=== PATIENT | male | born 1960 | race Caucasian/White ===

== ENCOUNTER 2016-10-27 15:05 | Emergency (ER) | payer BC, OTHER ==
--- NOTE | 2016-10-27 15:13 | PDOC ---
History of Present Illness - General History Source: Patient Exam Limitations: No Limitations - History of Present Illness Initial Comments: 10/27/16 15:33 The patient is a 56 year old male with no known past medical history who presents to the ED with complaints of abdominal pain that began approximately one hour ago. The patient locates the pain to his periumbilical area and describes it as a gassy, upset stomach feeling that is non-radiating. He rates the pain 6/10 and states that it is worse with sitting up and deep inspiration. It is accompanied with nausea but no vomiting. He denies any fevers or chills. The patient states he took ibuprofen and pepto bismol before arrival. As per , the patient experiences heartburn and has been taking lots of antacids. The patient states that he has been experiencing similar episodes since July but only after a large meal, however today the patient only ate a bagel this morning. Additionally, the patient states he hasnt seen his PCP in a few years. PMH: denies PSH: Polydactyly surgery as an infant Meds: Glucosamine chondroitin ALL: cats Social: employed, denies alcohol/drug/tobacco use PCP: Dr. Muniz <Pebbles Alaniz - Last Filed: 10/27/16 17:35> - General History Source: Patient Exam Limitations: No Limitations - History of Present Illness Travel History: No <[place] - Last Filed: 10/28/16 07:44> - General Chief Complaint: Pain Stated Complaint: ABDOMINAL PAIN & DISTENTION Time Seen by Provider: 10/27/16 15:09 Past History <Pebbles Alaniz - Last Filed: 10/27/16 17:35> - Psycho/Social/Smoking Cessation Hx Anxiety: No Suicidal Ideation: No Smoking History: Never smoked Hx Alcohol Use: No Substance Use Type: None <[place] - Last Filed: 10/28/16 07:44> - Past Medical History Allergies/Adverse Reactions: Allergies Allergy/AdvReac Type Severity Reaction Status Date / Time No Known Allergies Allergy Verified 10/27/16 15:07 Home Medications: Ambulatory Orders Bismuth Subsalicylate [Pepto-Bismol -] 2 tab PO ONCE 10/27/16 Glucosa Chandler 2Kcl/Chondroitin Chandler [Glucosamine & Chondroitin Cap] 1 each PO DAILY 10/27/16 Ibuprofen [Advil -] 200 mg PO ONCE PRN 10/27/16 Review of Systems - Review of Systems Able to Perform ROS?: Yes Comments:: 10/27/16 15:34 GENERAL/CONSTITUTIONAL: No: fever, chills, weakness, loss of appetite. HEAD, EYES, EARS, NOSE AND THROAT: No: change in vision, ear pain, discharge, sore throat, throat swelling. CARDIOVASCULAR: No: chest pain, lightheadedness, palpitations, syncope RESPIRATORY: No: cough, shortness of breath, wheezing, hemoptysis, stridor. GASTROINTESTINAL: Yes: abdominal pain, nausea No: vomiting, diarrhea, rectal bleeding, constipation. GENITOURINARY: No: dysuria, hematuria, frequency, urgency, flank pain. MUSCULOSKELETAL: No: back pain, neck pain, joint pain, muscle swelling or pain SKIN AND BREASTS: No: lesions, pallor, rash or easy bruising. NEUROLOGIC: No: headache, vertigo, paresthesias, weakness ENDOCRINE: No: unexplained weight gain or loss HEMATOLOGIC/LYMPHATIC: No: anemia, easy bleeding, swelling nodes All Other Systems: Reviewed and Negative <Pebbles Alaniz - Last Filed: 10/27/16 17:35> *Physical Exam - Vital Signs Last Vital Signs Temp Pulse Resp BP Pulse Ox 97.6 F 78 16 159/93 99 10/27/16 15:06 10/27/16 15:06 10/27/16 15:06 10/27/16 15:06 10/27/16 15:06 - Physical Exam Comments: 10/27/16 15:40 GENERAL: Awake, alert, and fully oriented, in no acute distress HEAD: No signs of trauma EYES: PERRLA, EOMI, sclera anicteric, conjunctiva clear ENT: Auricles normal inspection, hearing grossly normal, nares patent, oropharynx clear without exudates. Moist mucosa NECK: Normal ROM, supple, no lymphadenopathy, JVD, or masses LUNGS: Breath sounds equal, clear to auscultation bilaterally. No wheezes, and no crackles HEART: Regular rate and rhythm, normal S1 and S2, no murmurs, rubs or gallops ABDOMEN: Mild upper abdominal tenderness, hypoactive bowel sounds. Soft. No guarding, no rebound. No masses EXTREMITIES: Normal range of motion, no edema. No clubbing or cyanosis. No cords, erythema, or tenderness NEUROLOGICAL: Cranial nerves II through XII grossly intact. Normal speech, normal gait SKIN: Warm, Dry, normal turgor, no rashes or lesions noted. <Pebbles Alaniz - Last Filed: 10/27/16 17:35> Heart Score/ECG Review #1 ECG reviewed & interpreted by me at: 16:24 10/27/16 16:24 Twelve-lead EKG was performed and reviewed by me. There is normal sinus rhythm with a normal rate of 82bpm. The axis is normal. The intervals are normal. There are no ST or T wave abnormalities. Impression: Normal twelve-lead EKG <[place] - Last Filed: 10/28/16 07:44> ED Treatment Course - LABORATORY CBC & Chemistry Diagram: 10/27/16 15:45 10/27/16 15:45 <Pebbles Alaniz - Last Filed: 10/27/16 17:35> - LABORATORY CBC & Chemistry Diagram: 10/27/16 15:45 10/27/16 15:45 <[place] - Last Filed: 10/28/16 07:44> Medical Decision Making - Medical Decision Making 10/27/16 17:25 Phone call placed to Dr. Muniz. Phone call returned at 17:[address] Sosa and case was discussed. <Pebbles Alaniz - Last Filed: 10/27/16 17:35> - Medical Decision Making 10/27/16 15:12 A portion of this note was documented by scribe services under my direction. I have reviewed the details of the note, within reason, and agree with the documentation with the following case summary and management plan written by me. Nursing documentation reviewed and incorporated into medical decision making 56 yo M Does not have a PMD, unsure if he has any medical problems He presents to the ER with a complaint of severe upper abdominal pain Typically this happens after eating a large meal Today, this occurred without him eatiung a large meal No fevers No chills No vomiting No diarrhea No chest pain 10/27/16 16:43 Laboratory Tests 10/27/16 15:45 Sodium 134 L Potassium 3.4 L Chloride 105 Carbon Dioxide 25 BUN 18 Creatinine 1.1 AST 44 H ALT 44 H 10/27/16 17:00 Laboratory Tests 10/27/16 15:45 WBC 10.5 H Hgb 15.8 Hct 46.1 Plt Count 148 10/27/16 17:34 Laboratory Tests 10/27/16 15:45 Creatine Kinase 86 Troponin I < 0.[address] demonstrates 2 large stones No evidence of cholecystitis Case reviewed with Dr Sosa Will discharge to home Follow up with PMD Return to the ER with any other concerns or complaints 10/28/16 07:44 <[place] - Last Filed: 10/28/16 07:44> *DC/Admit/Observation/Transfer - Attestations Scribe Attestion: 10/27/16 15:35 Documentation prepared by Pebbles Alaniz, acting as medical staff assistant for [place] MD. <Pebbles Alaniz - Last Filed: 10/27/16 17:35> - Discharge Dispostion Admit: No <[place] - Last Filed: 10/28/16 07:44> Diagnosis at time of Disposition: Gall stone Qualifiers: Cholecystitis presence: without cholecystitis Biliary obstruction: without biliary obstruction Qualified Code(s): K80.20 - Calculus of gallbladder without cholecystitis without obstruction Abdominal pain Qualifiers: Abdominal location: upper abdomen, unspecified Qualified Code(s): R10.10 - Upper abdominal pain, unspecified - Discharge Dispostion Disposition: HOME Condition at time of disposition: Good - Referrals Referrals: Thaddeus Muniz MD [Primary Care Provider] - - Patient Instructions Printed Discharge Instructions: DI for Gallstones, DI for Gastritis Additional Instructions: Elder Thank you for coming in to the ER today Please follow up with your primary care physician and with a snack steward within 1 week Return to the ER for any other concerns or complaints Please review your studies
[2016-10-27] MEDS ORDERED: ONDANSETRON 4 MG/2 ML VIAL IVPUSH ONE (15:19)
[2016-10-27 15:20] VITALS: BP 159/93; PULSE 78; TEMP 97.6; BMI 32.3
[2016-10-27] MEDS ORDERED: PANTOPRAZOLE SODIUM 40 MG in SODIUM CHLORIDE 100 ML IVPB ONE (15:30)
[2016-10-27] MEDS ORDERED: ONDANSETRON 4 MG/2 ML VIAL ONE (16:10)
[2016-10-27] MEDS ORDERED: PANTOPRAZOLE SODIUM 40 MG VIAL ONE (16:10)
[2016-10-27 16:25] LABS: CPK(DFH) 86 IU/L (38-174)
[2016-10-27 16:27] LABS: ALBUMIN 3.8 g/dl (3.5-5.0); ALK PHOS 85 U/L (32-92); AMYLASE 73 U/L (25-125); ANION GAP 4 (8-16); BILIRUBIN,TOTAL 0.8 mg/dl (0.2-1.0); CALCIUM 8.7 mg/dl (8.4-10.2); CO2 25 mmol/L (22-28); CREATININE 1.1 mg/dl (0.6-1.3); GLUCOSE,RANDOM 143 mg/dl (74-106); SGOT/AST 44 U/L (10-42); SGPT/ALT 44 U/L (10-40); TOT PROT 6.3 g/dl (6.4-8.3)
[2016-10-27 16:48] LABS: BASOPHIL 0.1 % (0-2.0); EOSINOPHIL 1.6 % (0-4.5); MCH 29.4 pg (25.7-33.7); MCHC 34.3 g/dl (32.0-35.9); MEAN CELL VOLUME 85.8 fl (80-96); MEAN PLT VOLUME 8.6 fl (7.5-11.1); NEUTROPHILS 80.6 % (42.8-82.8); PLATELET COUNT 148 K/MM3 (134-434); WHITE BLOOD COUNT 10.5 K/mm3 (4.0-10.0)
[2016-10-27 17:10] LABS: TROPONIN I (DFP) < 0.03 ng/ml (0.03-0.50)
[2016-10-27 17:37] LABS: PH,URINE 5.5 (4.5-8); URINE APPEARANCE Clear; URINE BILIRUBIN 1+ (NEGATIVE); URINE BLOOD Negative (NEGATIVE); URINE GLUCOSE (UA) Negative (NEGATIVE); URINE KETONE Trace (NEGATIVE); URINE LEUK ESTERASE Negative (NEGATIVE); URINE NITRITE Negative (NEGATIVE); URINE PROTEIN Negative (NEGATIVE); URINE UROBILINOGEN 0.2 E.U/dl (0.2-1.0)
[2016-10-27 17:38] LABS: URINE COLOR YELLOW
--- NOTE | 2016-10-28 12:50 | EKG ---
Test Reason : Blood Pressure : / mmHG Vent. Rate : 082 BPM Atrial Rate : 082 BPM P-R Int : 134 ms QRS Dur : 084 ms QT Int : 380 ms P-R-T Axes : 085 -13 018 degrees QTc Int : 443 ms POOR DATA QUALITY, INTERPRETATION MAY BE ADVERSELY AFFECTED NORMAL SINUS RHYTHM NO PREVIOUS ECGS AVAILABLE Confirmed by MD ENGEL MARJORY ([id number]) on 10/28/2016 12:50:08 PM Referred By: MD TAYLOR Confirmed By:AMBERLY ENGEL MD
== END 2016-10-27 17:52 | disposition home or self-care (01) ==
LOC: FER 15:05
PROC: 3E033GC Introduction of Other Therapeutic Substance into Peripheral Vein, Percutaneous Approach (ICD-10-PCS; principal; 2016-10-27)
DX: K80.20 Calculus of gallbladder without cholecystitis without obstruction (principal); R10.10 Upper abdominal pain, unspecified
CPT/HCPCS: 36415; 74176-TC; 80053; 81003; 82150; 82550; 83690; 84484; 85025; 87086; 93005; 99284-25

== ENCOUNTER 2017-07-15 16:53 | Inpatient (IN) | payer OTHER ==
--- NOTE | 2017-07-15 17:05 | PDOC ---
History of Present Illness - General History Source: Patient Exam Limitations: No Limitations - History of Present Illness Initial Comments: 07/15/17 17:46 The patient is a 57 year old male, with a significant past medical history of gallstones, who presents to the emergency department with diffuse upper abdominal pain and fever. Patient reports a fever of 100.2 prior to arrival. He complains of nausea and dry heaves secondary to his symptoms. He reports not eating much due to the nausea and feeling dehydrated. He reports 4 episodes of nonbloody, nonbilious emesis. He reports taking Compazine for his symptoms with relief. He states he had a previous ED visit in October for gallstones and an inflamed stomach which they did not remove his gallbladder. As per his primary physician, the patient doubled the dose of dicyclomine. He denies any recent fevers, chills, headache or dizziness. He denies any recent diarrhea or constipation. He denies any recent chest pain or shortness of breath. He denies any recent dysuria, frequency, urgency or hematuria. Allergies: NKA Past surgical history: Polydactyly surgery as an infant. Medications: Dicyclomine HCl, Minocycline HCl, Prochloroperazine Maleate, Ranitidine Social History: Nonsmoker. Denies EtOH use and recreational drug use. Primary Care Physician: Dr. Muniz <Elizabeth Mccormick - Last Filed: 07/15/17 17:46> <Alee Humphries - Last Filed: 07/16/17 20:00> - General Chief Complaint: Pain Stated Complaint: ABD PAIN Time Seen by Provider: 07/15/17 17:04 Past History <Elizabeth Mccormick - Last Filed: 07/15/17 17:46> - Suicide/Smoking/Psychosocial Hx Smoking History: Never smoked Hx Alcohol Use: No Drug/Substance Use Hx: No Substance Use Type: None <Alee Humphries - Last Filed: 07/16/17 20:00> - Past Medical History Allergies/Adverse Reactions: Allergies Allergy/AdvReac Type Severity Reaction Status Date / Time No Known Allergies Allergy Verified 07/15/17 16:54 Home Medications: Ambulatory Orders Dicyclomine HCl 10 mg PO QID 07/15/17 Minocycline HCl 50 mg PO DAILY 07/15/17 Prochlorperazine Maleate [Compazine] 10 mg PO TID 07/15/17 Ranitidine [Zantac -] 150 mg PO HS 07/15/17 Review of Systems - Review of Systems Able to Perform ROS?: Yes Comments:: 07/15/17 17:47 GENERAL/CONSTITUTIONAL: + Fever No chills. No weakness. HEAD, EYES, EARS, NOSE AND THROAT: No change in vision. No ear pain or discharge. No sore throat. CARDIOVASCULAR: No chest pain or shortness of breath. RESPIRATORY: No cough, wheezing, or hemoptysis. GASTROINTESTINAL: + Nausea. +Vomiting. + Diffuse upper abdominal pain. No diarrhea or constipation. GENITOURINARY: No dysuria, frequency, or change in urination. MUSCULOSKELETAL: No joint swelling. No neck or back pain. SKIN: No rash NEUROLOGIC: No headache, vertigo, loss of consciousness, or change in strength/ sensation. ENDOCRINE: No increased thirst. No abnormal weight change. HEMATOLOGIC/LYMPHATIC: No anemia, easy bleeding, or history of blood clots. ALLERGIC/IMMUNOLOGIC: No hives or skin allergy. Is the patient limited [place] proficient: Yes All Other Systems: Reviewed and Negative <Elizabeth Mccormick - Last Filed: 07/15/17 17:46> *Physical Exam - Vital Signs Last Vital Signs Temp Pulse Resp BP Pulse Ox 99.5 F 95 H 20 160/91 96 07/15/17 16:54 07/15/17 16:54 07/15/17 16:54 07/15/17 16:54 07/15/17 16:54 <Elizabeth Mccormick - Last Filed: 07/15/17 17:46> - Physical Exam Comments: GENERAL: Awake, alert, and fully oriented, in no acute distress. Well-appearing , nontoxic. HEAD: No signs of trauma EYES: PERRLA, EOMI, sclera anicteric, conjunctiva clear ENT: Auricles normal inspection, hearing grossly normal, nares patent, oropharynx clear without exudates. Dry mucosa NECK: Normal ROM, supple, no lymphadenopathy, JVD, or masses LUNGS: Breath sounds equal, clear to auscultation bilaterally. No wheezes, and no crackles HEART: Regular rate and rhythm, normal S1 and S2, no murmurs, rubs or gallops ABDOMEN: Soft, diffuse mild tenderness, normoactive bowel sounds. No guarding, no rebound. No masses EXTREMITIES: Normal range of motion, no edema. No clubbing or cyanosis. No cords, erythema, or tenderness NEUROLOGICAL: Cranial nerves II through XII grossly intact. Normal speech, normal gait SKIN: Warm, Dry, normal turgor, no rashes or lesions noted. <Alee Humphries - Last Filed: 07/16/17 20:00> ED Treatment Course - LABORATORY CBC & Chemistry Diagram: 07/15/17 17:43 07/15/17 17:43 <Elizabeth Mccormick - Last Filed: 07/15/17 17:46> - LABORATORY CBC & Chemistry Diagram: 07/16/17 08:17 07/16/17 08:17 <Alee Humphries - Last Filed: 07/16/17 20:00> Medical Decision Making - Medical Decision Making 07/15/17 19:[address] Buenrostro at shift change. Labs have resulted, showing elevated WBC. Awaiting ultrasound results, then will require admission. <Alee Humphries - Last Filed: 07/16/17 20:00> *DC/Admit/Observation/Transfer - Attestations Scribe Attestion: 07/15/17 17:47 Documentation prepared by Elizabeth Mccormick, acting as medical data analyst for Alee Humphries MD. <Elizabeth Mccormick - Last Filed: 07/15/17 17:46> <Alee Humphries - Last Filed: 07/16/17 20:00> Diagnosis at time of Disposition: Acute cholecystitis
[2017-07-15] MEDS ORDERED: morphine CARPU-JECT 4 MG/1 ML DISP.SYRIN IVPUSH ONE (17:31)
[2017-07-15] MEDS ORDERED: SODIUM CHLORIDE 1,000 ML IV STA (17:31)
[2017-07-15] MEDS ORDERED: morphine CARPU-JECT 2 MG/1 ML DISP.SYRIN ONE (17:57)
[2017-07-15 18:04] LABS: ALBUMIN 4.4 g/dl (3.5-5.0); ALK PHOS 67 U/L (32-92); ANION GAP 10 (8-16); BILIRUBIN,TOTAL 1.8 mg/dl (0.2-1.0); CO2 22 mmol/L (22-28); CREATININE 1.4 mg/dl (0.6-1.3); GLUCOSE,RANDOM 127 mg/dl (74-106); SGOT/AST 46 U/L (10-42); SGPT/ALT 26 U/L (10-40); TOT PROT 7.2 g/dl (6.4-8.3)
[2017-07-15 18:12] LABS: BASOPHIL 1.5 % (0-2.0); EOSINOPHIL 0.1 % (0-4.5); MCH 29.1 pg (25.7-33.7); MCHC 34.4 g/dl (32.0-35.9); MEAN CELL VOLUME 84.5 fl (80-96); MEAN PLT VOLUME 9.7 fl (7.5-11.1); NEUTROPHILS 87.2 % (42.8-82.8); PLATELET COUNT 164 K/MM3 (134-434)
[2017-07-15 19:49] LABS: PH,URINE 5.5 (4.5-8); URINE APPEARANCE Clear; URINE BILIRUBIN Negative (NEGATIVE); URINE GLUCOSE (UA) Negative (NEGATIVE); URINE KETONE 4+ (NEGATIVE); URINE LEUK ESTERASE Negative (NEGATIVE); URINE NITRITE Negative (NEGATIVE); URINE PROTEIN Trace (NEGATIVE); URINE UROBILINOGEN 0.2 (0.2-1.0)
[2017-07-15] MEDS ORDERED: HYDROmorphone HCL CARPU-JECT 1 MG/1 ML DISP.SYRIN ONE (19:51)
[2017-07-15] MEDS ORDERED: HYDROmorphone HCL CARPU-JECT 1 MG/1 ML DISP.SYRIN IVPUSH ONE (19:51)
[2017-07-15 19:53] LABS: URINE BLOOD Trace-intact (NEGATIVE); URINE COLOR YELLOW
--- NOTE | 2017-07-15 19:57 | PDOC ---
*Physical Exam - Vital Signs Last Vital Signs Temp Pulse Resp BP Pulse Ox 99.5 F 95 H 20 160/91 96 07/15/17 16:54 07/15/17 16:54 07/15/17 16:54 07/15/17 16:54 07/15/17 16:54 ED Treatment Course - LABORATORY CBC & Chemistry Diagram: 07/15/17 17:43 07/15/17 17:43 - ADDITIONAL ORDERS Additional order review: Laboratory Results 07/15/17 07/15/17 19:38 17:43 Sodium 133 L Potassium 4.9 D Chloride 101 Carbon Dioxide 22 Anion Gap 10 BUN 21 H Creatinine 1.4 H D Creat Clearance w eGFR 52.05 Random Glucose 127 H Calcium 9.0 Total Bilirubin 1.8 H D AST 46 H ALT 26 D Alkaline Phosphatase 67 D Total Protein 7.2 Albumin 4.4 Lipase 16 L Urine Color Yellow Urine Appearance Clear Urine pH 5.5 Ur Specific Gates 1.025 Urine Protein Trace Urine Glucose (UA) Negative Urine Ketones 4+ H Urine Blood Trace-intact H Urine Nitrite Negative Urine Bilirubin Negative Urine Urobilinogen 0.2 Ur Leukocyte Esterase Negative 07/15/17 17:43 RBC 5.63 H MCV 84.5 MCHC 34.4 RDW 13.0 MPV 9.7 D Neutrophils % 87.2 H Lymphocytes % 5.8 L D Monocytes % 5.4 Eosinophils % 0.1 D Basophils % 1.5 D - Medications Given in the ED: ED Medications Discontinued Medications Generic Name Dose Route Start Last Admin Trade Name Freq PRN Reason Stop Dose Admin Hydromorphone HCl 1 mg 07/15/17 19:51 07/15/17 19:56 Dilaudid Injection - IVPUSH 07/15/17 19:52 1 mg ONCE ONE Administration Sodium Chloride 1,000 mls @ 1,000 mls/hr 07/15/17 17:31 07/15/17 17:44 Normal Saline - IV 07/15/17 18:30 1,000 mls/hr ASDIR STA Administration Morphine Sulfate 4 mg 07/15/17 17:31 07/15/17 18:06 Morphine Injection - IVPUSH 07/15/17 17:32 4 mg ONCE ONE Administration Progress Note - Progress Note Progress Note: Case discussed with ROSIO Miles. Patient will be admitted to [facility] hospitalist service with diagnosis of acute cholecystitis. Dr. Ram, covering for Dr. Muniz, contacted and case discussed with him: He will inform Dr. Muniz of patient's admission for acute cholecystitis here at [facility] Medical Decision Making - Medical Decision Making 07/15/17 22:20 Care of this patient received from Dr. Humphries. Gallbladder ultrasound interpreted by Imaging rotational moulding operator: Findings consistent with acute cholecystitis. Cholelithiasis lodged in the gallbladder neck with multiple gallstones throughout the gallbladder. There is 1.3 cm circumferential gallbladder wall thickening and pericholecystic fluid. Gallbladder is markedly dilated with 11.5 x 4 centimeters dilation. Common Bile duct is abnormally dilated measuring 1 cm with suspicion for choledocholithiasis Patient had already received 3.325 grams of IV Zosyn after gallbladder ultrasound performed. Patient's PMD (Dr. Muniz) does not admit to [facility]. [facility] hospitalist service contact *DC/Admit/Observation/Transfer Diagnosis at time of Disposition: Acute cholecystitis - Discharge Dispostion Admit: Yes - Referrals - Patient Instructions - Post Discharge Activity
[2017-07-15 20:03] LABS: URINE BACTERIA FEW /hpf (NEGATIVE)
[2017-07-15] MEDS ORDERED: PIPERACILLIN/TAZOBACTAM 3.375 GM VIAL IVPB ONE (20:28)
[2017-07-15] MEDS ORDERED: PIPERACILLIN/TAZOB 3.375 GM 50 ML IVPB ONE (20:29)
[2017-07-15] MEDS ORDERED: SODIUM CHLORIDE 1,000 ML IV SCH (21:00)
--- NOTE | 2017-07-15 22:30 | HP ---
CHIEF COMPLAINT: Abdominal Pain PCP: Dr. Muniz HISTORY OF PRESENT ILLNESS: This is a 57 y/o man with a past medical history of Cholelithasis, Borderline HTN, GERD. Who presents to the ED with epigastric pain, non-bilious emesis, fever since Sunday. Patient reports having a similar episode last October- Cholelithasis. Patient reports having a subjective fever 102.0 with 4-5 episodes of emesis today. Patient reports taking Compazine around 15:00- emesis now resolved. Patient denies cough, dizziness, GROVE, SOB, CP, diarrhea, dysuria. Patient denies any recent sick contacts. ER course was notable for: (1) US- findings consistent with Acute Cholecystitis, 1.3 Gallbladder wall thickening, and pericholecystic fluid (2) WBC- 17 (3) T bili -1.8 Recent Travel: None PAST MEDICAL HISTORY: Cholelithiasis Borderline HTN GERD PAST SURGICAL HISTORY: Polydactyly surgery as an infant Social History: Smoking: Never Alcohol: Occasional Drugs: None Lives at home with spouse, retired Family History: Father: [place] age 40 Mother: Breast Ca, Smoker, Allergies No Known Allergies Allergy (Verified 07/15/17 16:54) HOME MEDICATIONS: Home Medications Medication Instructions Recorded Dicyclomine HCl 10 mg PO QID 07/15/17 Minocycline HCl 50 mg PO DAILY 07/15/17 Prochlorperazine Maleate 10 mg PO TID 07/15/17 [Compazine] Ranitidine [Zantac -] 150 mg PO HS 07/15/17 REVIEW OF SYSTEMS CONSTITUTIONAL: Absent: fever, chills, diaphoresis, generalized weakness, malaise, loss of appetite, weight change HEENT: Absent: rhinorrhea, nasal congestion, throat pain, throat swelling, difficulty swallowing, mouth swelling, ear pain, eye pain, visual changes CARDIOVASCULAR: Absent: chest pain, syncope, palpitations, irregular heart rate, lightheadedness , peripheral edema RESPIRATORY: Absent: cough, shortness of breath, dyspnea with exertion, orthopnea, wheezing, stridor, hemoptysis GASTROINTESTINAL: abdominal pain, nausea, vomiting, , constipation, Absent: abdominal distension, diarrhea, melena, hematochezia GENITOURINARY: Absent: dysuria, frequency, urgency, hesitancy, hematuria, flank pain, genital pain MUSCULOSKELETAL: Absent: myalgia, arthralgia, joint swelling, back pain, neck pain SKIN: Absent: rash, itching, pallor HEMATOLOGIC/IMMUNOLOGIC: Absent: easy bleeding, easy bruising, lymphadenopathy, frequent infections ENDOCRINE: Absent: unexplained weight gain, unexplained weight loss, heat intolerance, cold intolerance NEUROLOGIC: Absent: headache, focal weakness or paresthesias, dizziness, unsteady gait, seizure, mental status changes, bladder or bowel incontinence PSYCHIATRIC: Absent: anxiety, depression, suicidal or homicidal ideation, hallucinations. PHYSICAL EXAMINATION Vital Signs - 24 hr 07/15/17 07/15/17 16:54 20:05 Temperature 99.5 F Pulse Rate 95 H Respiratory 20 Rate Blood Pressure 160/91 Blood Pressure 156/96 [Left] O2 Sat by Pulse 96 Oximetry (%) GENERAL: Obese, awake, alert, and fully oriented, in no acute distress. HEAD: Normal with no signs of trauma. EYES: Pupils equal, round and reactive to light, extraocular movements intact, sclera anicteric, conjunctiva clear. No lid lag. EARS, NOSE, THROAT: Ears normal, nares patent, oropharynx clear without exudates. Dry mucous membranes. NECK: Normal range of motion, supple without lymphadenopathy, JVD, or masses. LUNGS: Breath sounds equal, clear to auscultation bilaterally. No wheezes, and no crackles. No accessory muscle use. HEART: Regular rate and rhythm, normal S1 and S2 without murmur, rub or gallop. ABDOMEN: Soft, not distended, no guarding, no rebound, no masses. No hepatomegaly or splenomegaly. +Epigstric tenderness, hypoactive bowel sounds, + Reno's sign MUSCULOSKELETAL: Normal range of motion at all joints. No bony deformities or tenderness. No CVA tenderness. UPPER EXTREMITIES: 2+ pulses, warm, well-perfused. No cyanosis. No clubbing. No peripheral edema. LOWER EXTREMITIES: 2+ pulses, warm, well-perfused. No calf tenderness. No peripheral edema. NEUROLOGICAL: Cranial nerves II-XII intact. Normal speech. Normal gait. PSYCHIATRIC: Cooperative. Good eye contact. Appropriate mood and affect. SKIN: Warm, dry, normal turgor, no rashes or lesions noted, normal capillary refill. Laboratory Results - last 24 hr 07/15/17 07/15/17 07/15/17 17:43 17:43 18:45 WBC 17.0 H D RBC 5.63 H Hgb 16.4 Hct 47.6 MCV 84.5 MCH 29.1 MCHC 34.4 RDW 13.0 Plt Count 164 MPV 9.7 D Neutrophils % 87.2 H Lymphocytes % 5.8 L D Monocytes % 5.4 Eosinophils % 0.1 D Basophils % 1.5 D Sodium 133 L Potassium 4.9 D Chloride 101 Carbon Dioxide 22 Anion Gap 10 BUN 21 H Creatinine 1.4 H D Creat Clearance w eGFR 52.05 Random Glucose 127 H Lactic Acid 1.2 Calcium 9.0 Total Bilirubin 1.8 H D AST 46 H ALT 26 D Alkaline Phosphatase 67 D Total Protein 7.2 Albumin 4.4 Lipase 16 L Urine Color Urine Appearance Urine pH Ur Specific Hollis Urine Protein Urine Glucose (UA) Urine Ketones Urine Blood Urine Nitrite Urine Bilirubin Urine Urobilinogen Ur Leukocyte Esterase Urine RBC Urine WBC Ur Epithelial Cells Urine Bacteria 07/15/17 19:38 WBC RBC Hgb Hct MCV MCH MCHC RDW Plt Count MPV Neutrophils % Lymphocytes % Monocytes % Eosinophils % Basophils % Sodium Potassium Chloride Carbon Dioxide Anion Gap BUN Creatinine Creat Clearance w eGFR Random Glucose Lactic Acid Calcium Total Bilirubin AST ALT Alkaline Phosphatase Total Protein Albumin Lipase Urine Color Yellow Urine Appearance Clear Urine pH 5.5 Ur Specific Hollis 1.025 Urine Protein Trace Urine Glucose (UA) Negative Urine Ketones 4+ H Urine Blood Trace-intact H Urine Nitrite Negative Urine Bilirubin Negative Urine Urobilinogen 0.2 Ur Leukocyte Esterase Negative Urine RBC 5-10 Urine WBC 2-4 Ur Epithelial Cells Few Urine Bacteria Few Radiographic Imaging: Gallbladder ultrasound interpreted by Imaging director of recruitment and admissions: Findings consistent with acute cholecystitis. Cholelithiasis lodged in the gallbladder neck with multiple gallstones throughout the gallbladder. There is 1.3 cm circumferential gallbladder wall thickening and pericholecystic fluid. Gallbladder is markedly dilated with 11.5 x 4 centimeters dilation. Common Bile duct is abnormally dilated measuring 1 cm with suspicion for choledocholithiasis ASSESSMENT/PLAN: This is a 57 y/o man with a PMHx of: Cholelithiasis, Borderline HTN, Obesity. Admitted for Acute Cholecystitis for further evaluation of their emergent condition. Plan: FEN -NS@100ml/hr -Replete lytes prn -NPO Code Status: Full Code Dispo: Requires Inpatient Care Problem List - Problem (1) Acute cholecystitis Assessment/Plan: - US- Acute Cholecystitis, cholelithiasis, 1.3cm GB wall thickening, fluid around CBD - + Leukocytosis with neutrophila, T Max 99.5 - LA- wnl - Zosyn given in ED - Will start Ancef - Appreciate Surgical Consult - NPO - Continue IVF - Morphine Sulfate prn - Tylenol prn - Consider MRCP for r/o choledocholithiasis - Repeat CBC, BMP, in am - Pre-op labs- pending - Monitor vitals Code(s): K81.0 - ACUTE CHOLECYSTITIS (2) Abdominal pain Assessment/Plan: - See Above Code(s): R10.9 - UNSPECIFIED ABDOMINAL PAIN Qualifiers: Abdominal location: epigastric Qualified Code(s): R10.13 - Epigastric pain (3) SALVADOR (acute kidney injury) Assessment/Plan: - Likely secondary to dehydration - NS bolus x2 given in ED - Continue IVF - Repeat BMP in am Code(s): N17.9 - ACUTE KIDNEY FAILURE, UNSPECIFIED (4) Urine ketones Assessment/Plan: - Likely secondary to dehydration - Fluid bolus given in ED - Continue IVF Code(s): R82.4 - ACETONURIA (5) Borderline hypertension Assessment/Plan: - Controlled - Will continue to monitor and treat accordingly - Monitor renal function Code(s): R03.0 - ELEVATED BLOOD-PRESSURE READING, W/O DIAGNOSIS OF HTN (6) DVT prophylaxis Assessment/Plan: - OOB - SCDs - Heparin SQ Code(s): QXT6016 - Visit type - Emergency Visit Emergency Visit: Yes ED Registration Date: 07/15/17 Care time: The patient presented to the Emergency Department on the above date and was hospitalized for further evaluation of their emergent condition. - New Patient This patient is new to me today: Yes Date on this admission: 07/15/17 - Critical Care Critical Care patient: No
[2017-07-15] MEDS ORDERED: ONDANSETRON 4 MG/2 ML VIAL IVPUSH PRN (22:34)
[2017-07-15] MEDS ORDERED: morphine SULFATE 4 MG/ML VIAL IVPUSH PRN (22:37)
[2017-07-15] MEDS ORDERED: DEXTROSE 5%-0.45% SALINE 1,000 ML IV SCH (23:30)
[2017-07-16 00:36] VITALS: BMI 33.1
[2017-07-16] MEDS ORDERED: CEFAZOLIN 1 GM/D5W 1 GM/50 ML BAG IVPB SCH (02:00)
--- NOTE | 2017-07-16 07:44 | PN ---
Physical Exam: SUBJECTIVE: Patient seen and examined, reports an improvement in abdominal pain , denies any nausea or tactile fever. OBJECTIVE: patient is a 57 y/o man with a past medical history of Cholelithasis , Borderline HTN, GERD, patint was admitted from the emergency department for acute cholecytitis Vital Signs Period Temp Pulse Resp BP Sys/Jarvis Pulse Ox Last 24 Hr 98.1 F-99.5 F 78-95 18-20 147-160/71-96 94-96 GENERAL: The patient is awake, alert, and fully oriented, in no acute distress. HEAD: Normal with no signs of trauma. EYES: PERRL, extraocular movements intact, sclera anicteric, conjunctiva clear. No ptosis. ENT: Ears normal, nares patent, oropharynx clear without exudates, moist mucous membranes. NECK: Trachea midline, full range of motion, supple. LUNGS: Breath sounds equal, clear to auscultation bilaterally, no wheezes, no crackles, no accessory muscle use. HEART: Regular rate and rhythm, S1, S2 without murmur, rub or gallop. ABDOMEN: Soft, + smart's sign, , nondistended, normoactive bowel sounds, no guarding, no rebound, no hepatosplenomegaly, no masses. EXTREMITIES: 2+ pulses, warm, well-perfused, no edema. NEUROLOGICAL: Cranial nerves II through XII grossly intact. Normal speech, gait not observed. PSYCH: Normal mood, normal affect. SKIN: Warm, dry, normal turgor, no rashes or lesions noted Laboratory Results - last 24 hr CBC WBC 13.7 K/mm3 (4.0-10.8) H 07/16/17 08:17 RBC 5.16 M/mm3 (4.00-5.60) 07/16/17 08:17 Hgb 15.0 GM/dl (11.7-16.9) 07/16/17 08:17 Hct 44.1 % (35.4-49) 07/16/17 08:17 MCV 85.5 fl (80-96) 07/16/17 08:17 MCH 29.1 pg (25.7-33.7) 07/16/17 08:17 MCHC 34.0 g/dl (32.0-35.9) 07/16/17 08:17 RDW 12.9 % (11.9-15.9) 07/16/17 08:17 Plt Count 141 K/MM3 (134-434) 07/16/17 08:17 MPV 9.6 fl (7.5-11.1) 07/16/17 08:17 Neutrophils % No Result Required. 07/16/17 08:17 Neutrophils % (Manual) 80.0 % (42.8-82.8) 07/16/17 08:17 Band Neutrophils % 3.0 % (0-10) 07/16/17 08:17 Lymphocytes % No Result Required. 07/16/17 08:17 Lymphocytes % (Manual) 6.0 % (8-40) L 07/16/17 08:17 Monocytes % 5.4 % (3.8-10.2) 07/15/17 17:43 Monocytes % (Manual) 10 % (3.8-10.2) 07/16/17 08:17 Eosinophils % 0.1 % (0-4.5) D 07/15/17 17:43 Eosinophils % (Manual) 1.0 % (0-4.5) 07/16/17 08:17 Basophils % 1.5 % (0-2.0) D 07/15/17 17:43 CMP Sodium 135 mmol/L (136-145) L 07/16/17 08:17 Potassium 3.6 mmol/L (3.5-5.1) D 07/16/17 08:17 Chloride 102 mmol/L (98-107) 07/16/17 08:17 Carbon Dioxide 23 mmol/L (22-28) 07/16/17 08:17 Anion Gap 10 (8-16) 07/16/17 08:17 BUN 16 mg/dl (7-18) D 07/16/17 08:17 Creatinine 1.1 mg/dl (0.6-1.3) D 07/16/17 08:17 Creat Clearance w eGFR > 60 (>60) 07/16/17 08:17 Random Glucose 117 mg/dl (74-106) H 07/16/17 08:17 Lactic Acid 1.2 mmol/L (0.4-2.0) 07/15/17 18:45 Calcium 8.8 mg/dl (8.4-10.2) 07/16/17 08:17 Total Bilirubin 1.2 mg/dl (0.2-1.0) H D 07/16/17 08:17 AST 24 U/L (10-42) D 07/16/17 08:17 ALT 23 U/L (10-40) 07/16/17 08:17 Alkaline Phosphatase 61 U/L (32-92) 07/16/17 08:17 Total Protein 6.4 g/dl (6.4-8.3) 07/16/17 08:17 Albumin 3.9 g/dl (3.5-5.0) 07/16/17 08:17 Total Amylase 36 U/L (25-125) D 07/16/17 08:30 Lipase 19 U/L (22-51) L 07/16/17 08:30 Active Medications Generic Name Dose Route Start Last Admin Trade Name Freq PRN Reason Stop Dose Admin Cefazolin Sodium 1 gm in 50 mls @ 100 mls/hr 07/16/17 02:00 07/16/17 02:00 Ancef 1 Gm Premixed Ivpb - IVPB 100 mls/hr Q8H-IV JAVI Administration Dextrose/Sodium Chloride 1,000 mls @ 125 mls/hr 07/15/17 23:30 D5-1/2ns - IV ASDIR JAVI Morphine Sulfate 4 mg 07/15/17 22:37 Morphine Sulfate IVPUSH Q4H PRN PAIN Ondansetron HCl 4 mg 07/15/17 22:34 Zofran Injection IVPUSH Q6H PRN NAUSEA AND/OR VOMITING radiographic Imaging: Gallbladder ultrasound interpreted by Imaging coroner: Findings consistent with acute cholecystitis. Cholelithiasis lodged in the gallbladder neck with multiple gallstones throughout the gallbladder. There is 1.3 cm circumferential gallbladder wall thickening and pericholecystic fluid. Gallbladder is markedly dilated with 11.5 x 4 centimeters dilation. Common Bile duct is abnormally dilated measuring 1 cm with suspicion for choledocholithiasis ASSESSMENT/PLAN: 1) GI acute cholecytitis - wbc trending downward, patient is febrile, start rocephin and flagyl - mrcp ordered and reviewed, negative for choleductolithasis, + acute weston - prn morphin - Dr Vazquez consulted and followed, pending or today - GI, Dr Tirado consulted will require outpatient follow up for colonscopy as outpatient 2) nephrology stella - creatine 1.1, close to baseline - continue ivf - repeat bmp in am 3) CARD hypertension - b/p at goal strict monitoring FEN -d5NS w/20meq@100ml/hr -Replete lytes prn -NPO Code Status: Full Code pt is medically optimized for surgery Dispo: Requires Inpatient Care - Visit type - Emergency Visit Emergency Visit: Yes ED Registration Date: 07/15/17 Care time: The patient presented to the Emergency Department on the above date and was hospitalized for further evaluation of their emergent condition. - New Patient This patient is new to me today: Yes Date on this admission: 07/16/17 - Critical Care Critical Care patient: No - Discharge Referral Referred to [facility] Med [facility] No
--- NOTE | 2017-07-16 07:51 | CONSULT ---
- Consultation REQUESTING PROVIDER: Miquel Vazquez - General Surgery CONSULT REQUEST: We have been asked to surgically evaluate this patient for acute cholecystitis/choledocholithiasis. PCP: Cheryl Prather NP HPI: Called to jamil 57 yo male with h/o cholelithiasis. Presents to [facility] ER with c /o epigastric pain, non-bilious emesis and fever since Sunday. According to his past medical records, his last visit was 10/27/[address] for [address] A CT was performed and confirmed cholithiasis (not acute) at that time. Patient was discharged home without incidence. U/S 07/16/17: acute cholecystits/lithiasis, suspicion for distal cbd obstruction Denies chills or diaphoresis. Denies CP, palpitations or peripheral edema. Denies cough, SOB or OROURKE. Denies melena or hematochezia. Denies GROVE, dysuria or trauma. PMHx: Cholelithiasis, Borderline HTN, GERD PSHx: Polydactyly surgery as an Home Meds: 3 Dicyclomine HCl 10 mg PO QID 07/15/17 Minocycline HCl 50 mg PO DAILY 07/15/17 Prochlorperazine Maleate 10 mg PO TID 07/15/17 Ranitidine [Zantac -] 150 mg PO HS 07/15/17 Allergies: NKDA ROS: CONSTITUTIONAL: Absent: generalized weakness, malaise, weight change CARDIOVASCULAR: Absent: syncope, irregular heart rate, lightheadedness RESPIRATORY: Absent: wheezing, stridor, hemoptysis GASTROINTESTINAL:Absent: see hpi GENITOURINARY: Absent: dysuria, frequency, urgency, hesitancy, hematuria, flank pain, genital pain MUSCULOSKELETAL: Absent: myalgia, arthralgia, joint swelling, back pain, neck pain SKIN: Absent: rash, itching, pallor HEMATOLOGIC/IMMUNOLOGIC: Absent: easy bleeding, easy bruising, lymphadenopathy NEUROLOGIC: Absent: headache,paresthesias, dizziness, seizure, mental status changes, bladder or bowel incontinence PSYCHIATRIC: Absent: anxiety, depression, suicidal or homicidal ideation, hallucinations. PE: GENERAL: alert, oriented, nad HEAD: NC. AT. EYES: PERRL, sclera anicteric, conjunctiva clear. NECK: Normal ROM, supple without lymphadenopathy, JVD, or masses. LUNGS: CTA bilate anteriorly HEART: RRR ABDOMEN: Obese. Soft, NT, ND, normoactive bowel sounds, no guarding. MUSCULOSKELETAL: No CVAT bilat UE: 2+ pulses, warm, well-perfused. No cyanosis. Cap refill <2 seconds. No peripheral edema. LE: 2+ pulses, warm, well-perfused. No calf tenderness. No peripheral edema. NEUROLOGICAL: Normal speech, gait not observed. PSYCH: Cooperative. Good eye contact. Appropriate mood and affect. SKIN: Warm, dry, normal turgor, no rashes or lesions noted. Last Vital Signs Temp Pulse Resp BP Pulse Ox 98.1 F 78 18 157/84 94 L 07/16/17 05:53 07/16/17 05:53 07/16/17 05:53 07/16/17 05:53 07/16/17 05:53 CBC, BMP 07/15/17 17:43 07/15/17 17:43 Hepatic Panel Total Bilirubin 1.8 mg/dl (0.2-1.0) H D 07/15/17 17:43 AST 46 U/L (10-42) H 07/15/17 17:43 ALT 26 U/L (10-40) D 07/15/17 17:43 Alkaline Phosphatase 67 U/L (32-92) D 07/15/17 17:43 Albumin 4.4 g/dl (3.5-5.0) 07/15/17 17:43 Problem List - Problems (1) Acute cholecystitis Assessment/Plan: Admitted with acute cholecystitis/lithiasis, leukocytosis, febrile to 102F and a slightly elevated T.Bili 1.8. Following recommendations: NPO / IVF GI / DVT ppx IV ABX Trend WBC, LFTs Tylenol for fever > 100.3F f/u MRCP --> if negative and LFTs remain low then can proceed with lap weston ( consent obtained and placed in chart), IF MRCP +, patient will need ERCP for stone extraction then lap weston. Cont medical management / optimization Coags Type and Screen Above plan discussed with Dr. Vazquez and agrees. Code(s): K81.0 - ACUTE CHOLECYSTITIS Visit type - Case Type Case Type: ED Admission - Emergency Emergency Visit: Yes ED Registration Date: 07/15/17 Care time: The patient presented to the Emergency Department on the above date and was hospitalized for further evaluation of their emergent condition. - New patient This patient is new to me today: Yes Date on this admission: 07/16/17
[2017-07-16] MEDS ORDERED: CEFTRIAXONE 1 GM in DEXTROSE 5%-WATER - 50 ML IVPB SCH (08:30)
[2017-07-16] MEDS: METRONIDAZOLE 500 MG PREMIXED 500 MG/100 ML MG IVPB SCH (08:40)
[2017-07-16 09:29] LABS: INR 1.26 (0.82-1.09); MCH 29.1 pg (25.7-33.7); MEAN CELL VOLUME 85.5 fl (80-96); MEAN PLT VOLUME 9.6 fl (7.5-11.1); PLATELET COUNT 141 K/MM3 (134-434); RDW 12.9 % (11.9-15.9); WHITE BLOOD COUNT 13.7 K/mm3 (4.0-10.8)
[2017-07-16] MEDS ORDERED: CEFTRIAXONE 1 G/50 ML PREMIX 50 ML IVPB SCH (10:00)
--- NOTE | 2017-07-16 11:02 | PN ---
Progress Note (short form) - Note Progress Note: Patient seen and consult dictated. Patient is a 57 yo male with known hx of gallstones and episodic pain x 1 year. Now admitted with another episode of upper abdominal c/o and suspicion of acute cholecystitis and/or biliary colic. Sonogram shows gallstones but no biliary ductal dilatation (along with fatty liver) Labs with slight elevation transaminase levels but normal alk phos (?due to fatty liver). No evidence at present to suggest CBD stone/obstruction and patient scheduled for MRCP today. If negative, agree with plans for GB surgery. Will follow.
--- NOTE | 2017-07-16 12:35 | PN ---
Progress Note (short form) - Note Progress Note: MRCP: acute cholecystitis/lithiasis, no filling defect or bdc obstruction On add-on for Lap weston today. Problem List - Problems (1) Acute cholecystitis Code(s): K81.0 - ACUTE CHOLECYSTITIS
[2017-07-16 12:43] LABS: AMYLASE 36 U/L (25-125)
--- NOTE | 2017-07-16 13:01 | EKG ---
Test Reason : Blood Pressure : / mmHG Vent. Rate : 091 BPM Atrial Rate : 091 BPM P-R Int : 134 ms QRS Dur : 086 ms QT Int : 386 ms P-R-T Axes : 029 -12 004 degrees QTc Int : 474 ms NORMAL SINUS RHYTHM NORMAL ECG WHEN COMPARED WITH ECG OF 27-OCT-2016 16:05, NO SIGNIFICANT CHANGE WAS FOUND Confirmed by CHERI CHACON MD ([id number]) on 07/16/2017 1:01:30 PM Referred By: SAMSON LEON Confirmed By:CHERI CHACON MD
[2017-07-16 13:07] LABS: ALBUMIN 3.9 g/dl (3.5-5.0); ALK PHOS 61 U/L (32-92); ANION GAP 10 (8-16); BILIRUBIN,TOTAL 1.2 mg/dl (0.2-1.0); CALCIUM 8.8 mg/dl (8.4-10.2); CO2 23 mmol/L (22-28); CREATININE 1.1 mg/dl (0.6-1.3); GLUCOSE,RANDOM 117 mg/dl (74-106); SGOT/AST 24 U/L (10-42); SGPT/ALT 23 U/L (10-40); TOT PROT 6.4 g/dl (6.4-8.3)
[2017-07-16] MEDS ORDERED: ACETAMINOPHEN 1000 MG/100 ML VIAL (NON FORMULARY) IVPB ONE (13:45)
[2017-07-16] MEDS ORDERED: fentaNYL CITRATE 250 MCG/5 ML VIAL ONE (14:55)
[2017-07-16] MEDS ORDERED: ROCURONIUM BROMIDE 50 MG/5 ML VIAL ONE ×2 (14:55→16:51)
[2017-07-16] MEDS ORDERED: PROPOFOL 20 ML ONE ×2 (14:55)
[2017-07-16] MEDS ORDERED: MIDAZOLAM HCL 2 MG/2 ML SINGLE DOSE VIAL ONE (14:55)
[2017-07-16] MEDS ORDERED: LIDOCAINE HCL/PF 2% SDV 5ML VIAL ONE (14:56)
[2017-07-16] MEDS ORDERED: ONDANSETRON 4 MG/2 ML VIAL ONE (14:56)
[2017-07-16] MEDS ORDERED: DEXAMETHASONE SOD PHOSPHATE 4 MG/1 ML VIAL ONE (14:56)
[2017-07-16] MEDS ORDERED: GLYCOPYRROLATE 0.2 MG/1 ML VIAL ONE ×2 (15:36→17:52)
[2017-07-16] MEDS ORDERED: ePHEDrine SULFATE 50 MG/1 ML AMPULE ONE (15:52)
[2017-07-16] MEDS ORDERED: NEOSTIGMINE METHYLSULFATE 0.5 MG/ML - 10 ML MDV ONE (17:51)
[2017-07-16] MEDS ORDERED: KETOROLAC TROMETHAMINE 30 MG/1 ML VIAL ONE (17:52)
--- NOTE | 2017-07-16 18:03 | OP ---
Operative Note - Note: Operative Date: 07/16/17 Pre-Operative Diagnosis: acute cholecystitis Operation: lap weston Findings: acute cholecystitis Post-Operative Diagnosis: Same as Pre-op Surgeon: Miquel Vazquez Promotional Marketing Analyst: Annie Trevino Anesthesiologist/CRIMINALIST: Lior Moyer Anesthesia: General Specimens Removed: gallbladder and contents Estimated Blood Loss (mls): 100 Drains & Tubes with Location: 10 mm ESTEVAN
--- NOTE | 2017-07-16 18:14 | SURG ---
Surgery Tufting Machine Fixer Note Tufting Machine Fixer: Annie Trevino PA-C Date of Service: 07/16/17 Diagnosis: acute cholecystitis Procedure: laparoscopic cholecystectomy I was present for the entirety of the operative procedure. For further detail, please refer to operative report. Visit type - Case Type Case Type: ED Admission - Emergency Emergency Visit: Yes ED Registration Date: 07/15/17 Care time: The patient presented to the Emergency Department on the above date and was hospitalized for further evaluation of their emergent condition. - New patient This patient is new to me today: No
[2017-07-16] MEDS ORDERED: oxyCODONE HCL 5 MG TABLET PO PRN ×4 (18:20→18:22)
[2017-07-16] MEDS ORDERED: PROMETHAZINE HCL 25 MG/1 ML VIAL IVPUSH PRN (18:21)
[2017-07-16] MEDS ORDERED: ONDANSETRON 4 MG/2 ML VIAL IVPUSH PRN (18:21)
--- NOTE | 2017-07-16 20:47 | CONS ---
DATE OF CONSULTATION: DATE OF DICTATION: 07/16/2017 REASON FOR CONSULTATION: Patient is a 57-year-old gentleman seen for recent upper abdominal pain and gallstones. HISTORY OF PRESENT ILLNESS: The patient is a 57-year-old gentleman with a 1-year history of intermittent upper abdominal pain with occasional nausea and dyspepsia. The patient states his pains began June 2016, and in October 2016, he was in the emergency room where a CAT scan was performed and showed evidence of gallstones. The patient was discharged home and has had several episodes of upper abdominal pain in the interim. He finds that if he overeats, his pain is worse. He has been on antacids without complete relief. He was admitted via the emergency room on July 16 with more severe upper abdominal pain and an ultrasound showing what was believed to be acute cholecystitis with gallstones. The official report of the ultrasound does not show any biliary ductal dilatation, and the patient's laboratory tests included an alkaline phosphatase of 67, AST of 46 and ALT 26, and total bilirubin of 1.8. The patient has not noted any darkening of the urine or jaundice. He has no prior history of liver disease. He is moderately overweight, and the ultrasound does show evidence of a fatty liver. PHYSICAL EXAMINATION: General: Currently, the patient is resting comfortably, in no distress. He states his pain is essentially resolved. Lungs: He has clear lungs. Cardiac: Regular rate and rhythm. Abdomen: Soft, moderately obese abdomen with normoactive bowel sounds and no tenderness. LABORATORY DATA: His white count today is 13.7, down from an admission of 17; hemoglobin is 15; hematocrit 44.1 with a platelet count of 141,000. As noted, his ultrasound shows evidence of multiple calculi. The wall is moderately thickened with some pericholecystic fluid, and there is no evidence of intra- or extrahepatic biliary ductal dilatation. The liver is normal in size with hyperechoity consistent with fatty change. Patient appears to be having bouts of biliary colic due to gallstones. He did have an elevated white count at admission and sonographic evidence to suggest acute cholecystitis. His blood work and clinical course suggest against a common bile duct stone. However, apparently, an unofficial initial report of the sonogram may have shown a questionable common bile duct stone or dilatation, and an MRCP is pending to evaluate further. He does not appear to need an ERCP unless the MRCP shows evidence of a stone in the bile duct. We will follow as needed. GLENDY RODRIGUEZ M.D. NEFTALI/[id number]
[2017-07-16] MEDS: ACETAMINOPHEN 325 MG TABLET (FP) PO SCH (21:38)
[2017-07-16] MEDS: FAMOTIDINE 20 MG/50 ML IVPB 20 MG/50 ML MG IVPB SCH (21:39)
[2017-07-16] MEDS: HEPARIN NA (PORCINE) 5,000 UNITS/ML 1ML VIAL SQ SCH (21:39)
[2017-07-17] MEDS: METRONIDAZOLE 500 MG PREMIXED 500 MG/100 ML MG IVPB SCH ×2 (01:04→19:33)
[2017-07-17] MEDS: ACETAMINOPHEN 325 MG TABLET (FP) PO SCH ×4 (04:38→21:11)
[2017-07-17] MEDS: HEPARIN NA (PORCINE) 5,000 UNITS/ML 1ML VIAL SQ SCH ×3 (06:01→21:11)
--- NOTE | 2017-07-17 07:29 | PN ---
Progress Note (short form) - Note Progress Note: 57yo male POD #1 laprascopic Cholecystectomy seen and examined at bedside. Patient states he feels great with minimal pain overnight. He has been OOB, Ambulating tolerating clears and voiding spontaneously but has not had a BM or passed gas. He denies CP, SOB, N/V subjective fever of chills. AM labs pending Vital Signs Temp 98.6 F 07/17/17 06:00 Pulse 78 07/17/17 06:00 Resp 19 07/17/17 06:00 BP 133/77 07/17/17 06:00 Pulse Ox 98 07/17/17 06:06 Intake & Output 07/16/17 07/16/17 07/17/17 11:59 23:59 11:59 Intake Total 0 2450 1320 Output Total 680 40 Balance 0 1770 1280 Intake: IV 2450 1100 D5-1/2NS+20 MEQ KCL - 20 1100 meq In 1,000 ml @ 100 mls /hr IV ASDIR JAVI Rx#: [id number] IVPB 100 Oral 0 0 120 Output: Drainage 680 40 Right Abdomen 240 40 Urine 0 Void 0 Other: Voiding Method Toilet Toilet # Unmeasured Voids Void 1 2 Bowel Movement No PE: A&O x3 NAD, unlabored resp on RA Abdomen obese, NT and ND. Dressings C/D/I and surrounding tissue intact without evidence of erythema. J/p drain RLQ with serosanginous drainage-40cc overnight. B/L LE compartments soft, supple and non-tender . NVID with +2 pedal pulses. Assessment and plan: POD #1 lap weston doing well with ESTEVAN drain. 1) advance to regular diet. 2) stop ABX 3) OOB 4) Pain control 5) follow up AM labs 6) surgery to follow Evaluation and plan discussed with Dr Vazquez.
[2017-07-17 08:39] LABS: EOSINOPHIL 0.1 % (0-4.5); MCH 29.3 pg (25.7-33.7); MCHC 33.7 g/dl (32.0-35.9); MEAN PLT VOLUME 9.4 fl (7.5-11.1); NEUTROPHILS 89.5 % (42.8-82.8); PLATELET COUNT 137 K/MM3 (134-434); RDW 13.1 % (11.9-15.9); WHITE BLOOD COUNT 14.2 K/mm3 (4.0-10.8)
[2017-07-17 08:44] LABS: ALBUMIN 3.5 g/dl (3.5-5.0); ALK PHOS 55 U/L (32-92); ANION GAP 8 (8-16); BILIRUBIN,TOTAL 0.8 mg/dl (0.2-1.0); CALCIUM 8.6 mg/dl (8.4-10.2); CO2 23 mmol/L (22-28); CREATININE 1.2 mg/dl (0.6-1.3); GLUCOSE,RANDOM 136 mg/dl (74-106); SGOT/AST 49 U/L (10-42); SGPT/ALT 56 U/L (10-40); TOT PROT 6.3 g/dl (6.4-8.3)
[2017-07-17 08:45] LABS: BILIRUBIN,DIRECT < 0.2 mg/dL (0.0-0.3)
[2017-07-17] MEDS ORDERED: ARTIFICIAL TEARS (POLYVINYL ALCOHOL 1.4%) OPTH DROPS OU PRN (09:06)
[2017-07-17] MEDS: FAMOTIDINE 20 MG/50 ML IVPB 20 MG/50 ML MG IVPB SCH ×3 (09:10→21:11)
[2017-07-17] MEDS: KETOROLAC TROMETHAMINE 30 MG/1 ML VIAL IVPUSH PRN (09:12)
[2017-07-17] MEDS ORDERED: PT OWN MED DRAWER 7, Y5N ONE (13:11)
--- NOTE | 2017-07-17 13:55 | PN ---
Physical Exam: SUBJECTIVE: Patient seen and examined, ambulatory at bedside reports minimal pain, denies any nausea or vomiting, patient denies any chest pain or shortness of breath. OBJECTIVE:patient is a 57 y/o man with a past medical history of Cholelithasis, Borderline HTN, GERD, patint was admitted from the emergency department for acute cholecytitis, patient is s/p lap weston 07/16/17 Vital Signs Period Temp Pulse Resp BP Sys/Jarvis Pulse Ox Last 24 Hr 97.6 F-101.1 F 78-95 - 116-148/56-84 93-98 Intake & Output 07/16/17 07/17/17 07/17/17 23:59 07:59 15:59 Intake Total 450 1320 850 Output Total 680 40 Balance -230 1280 850 GENERAL: The patient is awake, alert, and fully oriented, in no acute distress. HEAD: Normal with no signs of trauma. EYES: PERRL, extraocular movements intact, sclera anicteric, conjunctiva clear. No ptosis. ENT: Ears normal, nares patent, oropharynx clear without exudates, moist mucous membranes. NECK: Trachea midline, full range of motion, supple. LUNGS: Breath sounds equal, clear to auscultation bilaterally, no wheezes, no crackles, no accessory muscle use. HEART: Regular rate and rhythm, S1, S2 without murmur, rub or gallop. ABDOMEN: Soft, nontender, slightly distended, hypoactive bowel sounds, no guarding, no rebound, no hepatosplenomegaly, no masses. surgical site cdi, juan alberto noted to right LQ draining scant drainage. EXTREMITIES: 2+ pulses, warm, well-perfused, no edema. NEUROLOGICAL: Cranial nerves II through XII grossly intact. Normal speech, gait not observed. PSYCH: Normal mood, normal affect. SKIN: Warm, dry, normal turgor, no rashes or lesions noted Laboratory Results - last 24 hr 07/17/17 07/17/17 07:00 07:00 WBC 14.2 H RBC 4.72 Hgb 13.8 Hct 41.0 MCV 87.0 MCH 29.3 MCHC 33.7 RDW 13.1 Plt Count 137 MPV 9.4 Neutrophils % 89.5 H Lymphocytes % 4.1 L D Monocytes % 6.3 Eosinophils % 0.1 Basophils % 0.0 Sodium 136 Potassium 4.3 Chloride 105 Carbon Dioxide 23 Anion Gap 8 BUN 19 H Creatinine 1.2 Random Glucose 136 H Calcium 8.6 Total Bilirubin 0.8 D Direct Bilirubin < 0.2 AST 49 H D ALT 56 H D Alkaline Phosphatase 55 Total Protein 6.3 L Albumin 3.5 Active Medications Generic Name Dose Route Start Last Admin Trade Name Freq PRN Reason Stop Dose Admin Acetaminophen 650 mg 07/16/17 22:00 07/17/17 09:10 Tylenol - PO 650 mg Q6H JAVI Administration Artificial Tears 1 drop 07/17/17 09:06 Artificial Tears OU QID PRN DRY EYES Heparin Sodium (Porcine) 5,000 unit 07/16/17 22:00 07/17/17 06:01 Heparin - SQ 5,000 unit TID [facility] Administration Potassium Chloride/Dextrose/Sod Cl 20 meq in 1,000 mls @ 100 mls/hr 07/16/17 14:45 D5-1/2ns+20 Meq Kcl - IV ASDIR [facility] Famotidine/Sodium Chloride 20 mg in 50 mls @ 100 mls/hr 07/16/17 15:45 09:10 Pepcid 20 Mg Premixed Ivpb - IVPB 100 mls/hr BID JAVI Administration Ketorolac Tromethamine 30 mg 07/17/17 02:00 07/17/17 09:12 Toradol Injection - IVPUSH 07/22/17 01:59 30 mg Q8H-IV PRN Administration MILD PAIN Morphine Sulfate 4 mg 07/15/17 22:37 Morphine Sulfate IVPUSH Q4H PRN PAIN Ondansetron HCl 4 mg 07/16/17 18:21 Zofran Injection IVPUSH Q6H PRN NAUSEA AND/OR VOMITING Oxycodone HCl 5 mg 07/16/17 18:20 Roxicodone - PO Q6H PRN PAIN LEVEL 1-5 Oxycodone HCl 10 mg 07/16/17 18:22 Roxicodone - PO Q6H PRN PAIN LEVEL 6-10 Promethazine HCl 12.5 mg 07/16/17 18:21 Phenergan Injection - IVPUSH Q6H PRN NAUSEA-FOR RESCUE AFTER 15 MIN Microbiology 07/15/17 19:38 Urine - Urine Clean Catch Urine Culture - Final NO GROWTH OBTAINED 07/15/17 18:59 Blood - Peripheral Venous Blood Culture - Preliminary NO GROWTH OBTAINED AFTER 24 HOURS, INCUBATION TO CONTINUE FOR 4 DAYS. 07/15/17 18:59 Blood - Peripheral Venous Blood Culture - Preliminary NO GROWTH OBTAINED AFTER 24 HOURS, INCUBATION TO CONTINUE FOR 4 DAYS. radiographic Imaging: Gallbladder ultrasound interpreted by Imaging front end drupal developer: Findings consistent with acute cholecystitis. Cholelithiasis lodged in the gallbladder neck with multiple gallstones throughout the gallbladder. There is 1.3 cm circumferential gallbladder wall thickening and pericholecystic fluid. Gallbladder is markedly dilated with 11.5 x 4 centimeters dilation. Common Bile duct is abnormally dilated measuring 1 cm with suspicion for choledocholithiasis mrcp negative for choleductolithasis, + acute weston ASSESSMENT/PLAN: 1) GI acute cholecytitis, s/p lap weston post op day 1 - patient is afebrile, slight leukocytosis is noted, monitor fever curve, rocephin and flagyl (07/16) - continue prn oxycodone - Dr Vazquez consulted and following - GI, Dr Tirado consulted will require outpatient follow up for colonscopy as outpatient 2) nephrology stella - secondary to hypovolemia, creatine 1.2, close to baseline - repeat bmp in am 3) CARD hypertension - b/p at goal strict monitoring FEN - advance to low fat diet -Replete lytes prn Code Status: Full Code pt is medically optimized for surgery Dispo: Requires Inpatient Care Visit type - Emergency Visit Emergency Visit: Yes ED Registration Date: 07/15/17 Care time: The patient presented to the Emergency Department on the above date and was hospitalized for further evaluation of their emergent condition. - New Patient This patient is new to me today: No - Critical Care Critical Care patient: No - Discharge Referral Referred to [facility] Med P.C.: No
[2017-07-17] MEDS: D5-1/2NS+20 MEQ KCL - 20 MEQ/1,000 ML INFUS.BAG IV SCH ×2 (19:32→19:33)
[2017-07-18] MEDS: HEPARIN NA (PORCINE) 5,000 UNITS/ML 1ML VIAL SQ SCH (05:03)
[2017-07-18] MEDS: ACETAMINOPHEN 325 MG TABLET (FP) PO SCH ×2 (05:03→09:30)
[2017-07-18 06:27] VITALS: BP 147/82; PULSE 71; TEMP 98.3
--- NOTE | 2017-07-18 07:35 | DS ---
Physical Exam: SUBJECTIVE: Patient seen and examined, patient is ambulatory at bedside, denies any abdominal pain, tolerating regular low cholesterol diet, denies any tactile fevers. OBJECTIVE:This is a 57 y/o man with a past medical history of Cholelithasis, Borderline HTN, GERD. Who presents to the ED with epigastric pain, non-bilious emesis, fever since Sunday. Patient reports having a similar episode last October- Cholelithasis. Patient reports having a subjective fever 102.0 with 4- 5 episodes of emesis today. Patient reports taking Compazine around 15:00- emesis now resolved. Patient denies cough, dizziness, GROVE, SOB, CP, diarrhea, dysuria. Patient denies any recent sick contacts. ER course was notable for: (1) US- findings consistent with Acute Cholecystitis, 1.3 Gallbladder wall thickening, and pericholecystic fluid (2) WBC- 17 (3) T bili -1.8 Vital Signs Period Temp Pulse Resp BP Sys/Jarvis Pulse Ox Last 24 Hr 98.0 F-98.3 F 71-93 18-20 117-147/70-82 97-97 PHYSICAL EXAM GENERAL: The patient is awake, alert, and fully oriented, in no acute distress. HEAD: Normal with no signs of trauma. EYES: PERRL, extraocular movements intact, sclera anicteric, conjunctiva clear. ENT: Ears normal, nares patent, oropharynx clear without exudates, moist mucous membranes. NECK: Trachea midline, full range of motion, supple. LUNGS: Breath sounds equal, clear to auscultation bilaterally, no wheezes, no crackles, no accessory muscle use. HEART: Regular rate and rhythm, S1, S2 without murmur, rub or gallop. ABDOMEN: steri-strips intact, no erythema, mild point tenderness noted to surigical sites. Soft, nontender, nondistended, normoactive bowel sounds, no guarding, no rebound, no hepatosplenomegaly, no masses. EXTREMITIES: 2+ pulses, warm, well-perfused, no edema. NEUROLOGICAL: Cranial nerves II through XII grossly intact. Normal speech, gait not observed. PSYCH: Normal mood, normal affect. SKIN: Warm, dry, normal turgor, no rashes or lesions noted. LABS Laboratory Results - last 24 hr 07/17/17 07/17/17 07:00 07:00 WBC 14.2 H RBC 4.72 Hgb 13.8 Hct 41.0 MCV 87.0 MCH 29.3 MCHC 33.7 RDW 13.1 Plt Count 137 MPV 9.4 Neutrophils % 89.5 H Lymphocytes % 4.1 L D Monocytes % 6.3 Eosinophils % 0.1 Basophils % 0.0 Sodium 136 Potassium 4.3 Chloride 105 Carbon Dioxide 23 Anion Gap 8 BUN 19 H Creatinine 1.2 Random Glucose 136 H Calcium 8.6 Total Bilirubin 0.8 D Direct Bilirubin < 0.2 AST 49 H D ALT 56 H D Alkaline Phosphatase 55 Total Protein 6.3 L Albumin 3.5 Microbiology 07/15/17 18:59 Blood - Peripheral Venous Blood Culture - Preliminary NO GROWTH OBTAINED AFTER 48 HOURS, INCUBATION TO CONTINUE FOR 3 DAYS. 07/15/17 18:59 Blood - Peripheral Venous Blood Culture - Preliminary NO GROWTH OBTAINED AFTER 48 HOURS, INCUBATION TO CONTINUE FOR 3 DAYS. 07/15/17 19:38 Urine - Urine Clean Catch Urine Culture - Final NO GROWTH OBTAINED radiographic Imaging: Gallbladder ultrasound interpreted by Imaging personalization specialist: Findings consistent with acute cholecystitis. Cholelithiasis lodged in the gallbladder neck with multiple gallstones throughout the gallbladder. There is 1.3 cm circumferential gallbladder wall thickening and pericholecystic fluid. Gallbladder is markedly dilated with 11.5 x 4 centimeters dilation. Common Bile duct is abnormally dilated measuring 1 cm with suspicion for choledocholithiasis mrcp negative for choleductolithasis, + acute weston HOSPITAL COURSE: Patient was admitted from the emergency department for acute cholecytitis, s/ p lap weston post op day 2, Dr Vazquez, patient is afebrile, leukocytosis resolved , rocephin and flagyl (07/16), pain was well managed with prn oxycodone. GI, Dr Tirado consulted will require outpatient follow up for colonscopy as outpatient. patient was noted to have salvador upon admission, secondary to hypovolemia, creatine 1.2, close to baseline. Blood pressure at goal. Date of Admission:07/15/17 Date of Discharge: 07/18/17 Minutes to complete discharge: 45 Discharge Summary Reason For Visit: ACUTE CHOLECYSTITIS Current Active Problems SALVADOR (acute kidney injury) (Acute) Acute cholecystitis (Acute) Borderline hypertension (Acute) DVT prophylaxis (Acute) Urine ketones (Acute) Condition: Good - Instructions Diet, Activity, Other Instructions: Dr. Vazquez Discharge Instructions Dear FRANCISCO SALGADO, Post Operative Instructions Physical activity Resume your normal everyday activity as tolerated no heavy lifting or exercise until seen by your surgeon. You may walk unlimited amounts of and climb stairs. You may resume driving the car when you feel safe and comfortable behind the wheel. Wound care If you have a bandage, leave it on, and keep dry for 48 - 72 hours. After that time discard the outer bandage. If there are tapes on the skin under the outer bandage, leave them in place. They will peel off in the next 7 to 10 days. Do Not peel them off. You may shower 2 days after surgery. If there are tapes present on the skin, they can get wet. Diet There are no dietary restrictions. Eat healthy, high-fiber foods. Drink 6 to 8 glasses of liquid each day. This will assist in keeping your bowels are regular. Pain management You may take Tylenol or acetaminophen or Ibuprofen (for example, Motrin, Advil etc.) Any pain prescription medication ordered should be taken as prescribed for moderate to severe pain. You have been taking oxycodone for pain medication while in house in addition to your home medications with no significant side effects. Please discuss the use of these medications in detail with your pharmacist and take as directed. Call Dr. Vazquez for any of the following: Severe pain not relieved by medication Fever of 101 or higher Excessive bleeding or drainage on dressing Inability to urinate Call the office at [phone] for a post operative appointment in 7 - 10 days. Referrals: Thaddeus Muniz MD [Primary Care Provider] - Disposition: HOME - Home Medications Comprehensive Discharge Medication List: Ambulatory Orders Dicyclomine HCl 10 mg PO QID 07/15/17 Minocycline HCl 50 mg PO DAILY 07/15/17 Prochlorperazine Maleate [Compazine] 10 mg PO TID 07/15/17 Ranitidine [Zantac -] 150 mg PO HS 07/15/17 This patient is new to me today: No Emergency Visit: Yes ED Registration Date: 07/15/17 Care time: The patient presented to the Emergency Department on the above date and was hospitalized for further evaluation of their emergent condition. Critical Care patient: No - Discharge Referral Referred to [facility] Med P.C.: No
--- NOTE | 2017-07-18 08:00 | PN ---
Progress Note (short form) - Note Progress Note: 57yo male POD #2 laprascopic Cholecystectomy seen and examined in chair at bedside. Patient states he feels well with minimal pain overnight which continues to improve. He has been OOB, Ambulating tolerating a regular diet, and voiding spontaneously. He is passing gas but has not had a BM. He denies CP , SOB, N/V subjective fever of chills. Vital Signs Temp 98.3 F 07/18/17 06:00 Pulse 71 07/18/17 06:00 Resp 18 07/18/17 06:00 BP 147/82 07/18/17 06:00 Pulse Ox 97 07/17/17 19:57 Intake & Output 07/17/17 07/17/17 07/18/17 11:59 23:59 11:59 Intake Total 1720 950 Output Total 40 60 30 Balance 1680 890 -30 Intake: IV 1100 500 D5-1/2NS+20 MEQ KCL - 20 1100 500 meq In 1,000 ml @ 100 mls /hr IV ASDIR JAVI Rx#: [id number] IVPB 100 Oral 520 450 Output: Drainage 40 60 30 Right Abdomen 40 60 30 Other: Voiding Method Toilet Toilet Toilet # Unmeasured Voids Void 2 2 Bowel Movement No No CBC, BMP 07/18/17 07:45 07/18/17 07:00 PE: A&O x3 NAD, unlabored resp on RA Abdomen obese, with mild tenderness to palpation over subxiphoid space minimal distention appropriate to status. incisions c/d/i without d/c and new steri strips applied. surrounding tissue intact without evidence of erythema. J/p drain RLQ with serosanginous drainage-30cc overnight, drain pulled- fully intact , (20cc in drain) site closed with steri strips. B/L LE compartments soft, supple and non-tender . NVID with +2 pedal pulses. Assessment and plan: POD #2 lap weston doing well. WBC WNL and labs trending down appropriate to status. 1) D/c planning for home today 2) pain control with oxycodone as patient has tolerated this medication in conjunction with home medications 3) OOB as tolerated Evaluation and plan discussed with Dr Vazquez.
[2017-07-18 08:46] LABS: MCH 29.7 pg (25.7-33.7); MCHC 34.1 g/dl (32.0-35.9); PLATELET COUNT 126 K/MM3 (134-434); RDW 13.3 % (11.9-15.9); WHITE BLOOD COUNT 10.1 K/mm3 (4.0-10.8)
[2017-07-18 08:49] LABS: ALBUMIN 3.6 g/dl (3.5-5.0); ALK PHOS 52 U/L (32-92); ANION GAP 9 (8-16); BILIRUBIN,TOTAL 0.9 mg/dl (0.2-1.0); CALCIUM 8.6 mg/dl (8.4-10.2); CO2 22 mmol/L (22-28); CREATININE 1.4 mg/dl (0.6-1.3); GLUCOSE,RANDOM 81 mg/dl (74-106); SGOT/AST 35 U/L (10-42); SGPT/ALT 49 U/L (10-40); TOT PROT 6.2 g/dl (6.4-8.3)
[2017-07-18] MEDS: KETOROLAC TROMETHAMINE 30 MG/1 ML VIAL IVPUSH PRN (09:29)
[2017-07-18] MEDS: FAMOTIDINE 20 MG/50 ML IVPB 20 MG/50 ML MG IVPB SCH (09:29)
--- NOTE | 2017-07-19 10:28 | OP ---
DATE OF OPERATION: 07/16/2017 PREOPERATIVE DIAGNOSIS: Chronic cholecystitis, cholelithiasis. PREOPERATIVE DIAGNOSIS: Chronic cholecystitis, cholelithiasis. PROCEDURE: Laparoscopic cholecystectomy. SURGEON: Miquel Vazquez MD EVENT MGR: Edwina Gibbs PA-C and JACKELYN Mckenzie ANESTHESIA: General. OPERATIVE FINDINGS: Acute cholecystitis and cholelithiasis. The rest of the findings were unremarkable. DESCRIPTION OF PROCEDURE: The patient was placed on the operating room table in supine position. After the induction of general anesthesia, the patient's abdomen was prepped with ChloraPrep and draped in a sterile fashion. Pneumoperitoneum was established above the umbilicus using a Veress needle to an intra-abdominal pressure of 15 mmHg. A 5-mm supraumbilical port was placed. Additional lateral 5-mm ports and a subxiphoid 12-mm port were placed. Adhesions of omentum to the gallbladder were taken down using a combination of blunt dissection and electrocautery. This was taken down to the neck of the gallbladder where the peritoneum over it was opened medially and laterally using electrocautery. At this point, further blunt dissection was carried distally until the origin of the cystic duct was identified at the neck of the gallbladder coursing distally to the common bile duct. The duct was bluntly dissected proximally and distally for length. In addition, the artery was similarly identified and dissected proximally and distally for length, and then a critical view of safety was taken. At this point, the duct was divided between two large hemoclips proximally and distally using the Endo Olamide. The artery was similarly clipped and divided. Next, the gallbladder was removed from the liver bed in a retrograde fashion using electrocautery. The proximal gallbladder was intrahepatic. Prior to removal from the edge of the liver, hemostasis was checked for and noted to be good. The gallbladder was then removed from the edge of the liver and placed in an EndoCatch with some large stones that had come out through the all of the gallbladder during dissection. The specimen was passed off the operative field and the pneumoperitoneum re-established and copious irrigation carried out until the effluent was clear. Hemostasis was again verified, and then a 10-mm Papo-Guerra drain was placed in the right hepatorenal fossa and brought ounces through one of the 5-mm port sites and secured to the skin with 2-0 silk suture. Again, hemostasis was verified and then all ports were removed under laparoscopic vision and the pneumoperitoneum evacuated. All port sites were infiltrated with 0.5% Marcaine and the skin edges reapproximated with a 4-0 Monocryl in a subcuticular, continuous fashion followed by Band-Aid dressings. The drain was connected to bulb suction and then the patient aroused from general anesthesia and transferred to the post anesthesia care unit in stable condition awake and alert. ESTIMATED BLOOD LOSS: 150 mL. REPLACEMENT: Crystalloid. DRAINS: One 10-mm Papo-Guerra. SPECIMENS: Gallbladder and contents to pathology. I, Miquel Vazquez, was physically present in the operating room from the time the patient was placed on the operating room table until he was transferred to the post anesthesia care unit in [employer]. MD JULIA Mcpherson/[id number]
--- NOTE | 2017-07-19 10:30 | PATH ---
Surgical Pathology Report Patient Name: FRANCISCO SALGADO Med. Rec. #: [id number] /Age/Gender: 1960 (Age: 57) / M Account: [id number] Location: [facility] MED-SURG Taken: 07/16/2017 Received: 07/16/2017 Reported: 07/19/2017 Physicians: Miquel Vazquez MD Specimen(s) Received GALLBLADDER Clinical History Acute cholecystitis Final Diagnosis GALLBLADDER, CHOLECYSTECTOMY: ACUTE AND CHRONIC CHOLECYSTITIS. CHOLELITHIASIS. Electronically Signed Edwina Samuels M.D. Gross Description Received in formalin, labeled "gallbladder," is a 6.5 x 3.2 x 3.1 cm. gallbladder with a 0.2 cm. in length portion of cystic duct attached. The outer surface is espinosa cary with a focal defect and varies from smooth to shaggy. The lumen contains brown, sludgelike bile as well as 2 brown, irregular choleliths averaging 1.6 cm in greatest dimension. The mucosa is brown with focal erosions. The wall of the gallbladder ranges from 0.1-0.6 cm. in thickness. Tax Map Technician sections are submitted in one cassette. 07/17/201707/17/2017
== END 2017-07-18 14:30 | disposition home or self-care (01) | DRG 418 ==
LOC: FER 16:53 → FM/S 22:44
PROVIDERS: ADMIT Internal Medicine; ATTEND Nurse Practitioner Family
PROC: 0FT44ZZ Resection of Gallbladder, Percutaneous Endoscopic Approach (ICD-10-PCS; principal; 2017-07-16 15:51)
DX: K80.00 Calculus of gallbladder with acute cholecystitis without obstruction (principal); N17.9 Acute kidney failure, unspecified; K21.9 Gastro-esophageal reflux disease without esophagitis; I10 Essential (primary) hypertension; R10.13 Epigastric pain; R82.4 Acetonuria; E86.1 Hypovolemia; E66.8 Other obesity; Z68.33 Body mass index [BMI] 33.0-33.9, adult
CPT/HCPCS: 36415; 71010-TC; 74182-TC; 76705-TC; 80048; 80053; 80076; 81003; 81015; 82150; 83605; 83690; 85025; 85027; 85610; 86850; 86900; 86901; 87040; 87086; 88304-TC; 93005; 94760; 99283-25; A9576; J1644